=== PATIENT | female | born 1970 | race Caucasian/White ===

== ENCOUNTER 2017-01-13 22:13 | Observation (INO) | payer BC ==
[~2017-01-13] VITALS: Ht 175.3 cm; Wt 127.2 kg
--- NOTE | ~2017-01-13 | OP ---
Record Of Operation [facility] [address] [place]. [address] NAME: ADA ZIMMERMAN : 74 STATUS : DIS Laly PAT#: [id number] AGE: 46 ADM/REG DATE : 01/13/17 MR#: [id number] REPORT SERV DATE: 01/17/17 DICTATED BY: RALPH WEINSTEIN DATE: 01/17/17 REPORT STATUS : Draft TRANSCRIBED BY: MODL DATE: 01/17/17 DATE OF PROCEDURE: 01/14/2017 PREOPERATIVE DIAGNOSIS: Acute cholecystitis with cholelithiasis. POSTOPERATIVE DIAGNOSIS: Acute cholecystitis with cholelithiasis. PROCEDURE: Laparoscopic cholecystectomy (two-site). CORRIDOR REDEVELOPMENT MANAGER: Salvador. DESCRIPTION OF OPERATIVE PROCEDURE: The patient was brought to the operating suite, placed in supine position, underwent satisfactory general endotracheal anesthesia without incident. The skin of the abdomen was scrubbed, prepped, and draped in usual sterile fashion. 0.5% Marcaine with epinephrine was utilized as supplemental local anesthesia at all intended trocar sites. Initially, an infraumbilical incision was performed dissecting through the skin and subcutaneous tissue to the umbilical fascia. This was grasped with a Yobany clamp and elevated and a disposable Veress insufflation needle was inserted through the umbilical fascia into the peritoneal cavity. The intraperitoneal tip location was ascertained using the saline hanging drop method following which CO2 was insufflated for pressures of 15 mmHg throughout the case. After adequate insufflation pressures were achieved, the Veress needle was removed, and a disposable bladed/shielded 11 mm trocar was placed into the peritoneal cavity following which a rigid forward-viewing 10 mm laparoscope was inserted. Visualization of the intraabdominal parietes revealed no evidence of injury from initial insufflation or puncture. A cursory examination of the pelvis was normal. Attention was turned to the upper abdomen where an additional 5 mm trocar was placed to the right of falciform ligament. An additional 5 mm grasping instrument inserted through the umbilical fascia next to the umbilical trocar. The gallbladder was visualized, as expected it was thickened and acutely inflamed and edematous consistent with preoperative imaging and the patient's history. The fundus and body the gallbladder were grasped sequentially, and then I was able to proceed with dissection in the triangle of Calot area. The edematous and thickened peritoneum was dissected free with blunt and cautery dissection, and then the cystic duct, cystic duct and common duct junction, and cystic artery were visualized. There was one branch of the cystic artery that was anterior. The critical view was obtained The aforementioned structures were controlled with multiple applications of the Weck 5 mm polymer clip system and divided, and then using spatula cautery dissection, the peritoneal attachments of the gallbladder and liver were divided supplemented with irrigation and aspiration. Record Of Operation [facility] [address] [place]. [address] NAME: ADA ZIMMERMAN : 74 STATUS : DIS Laly PAT#: [id number] AGE: 46 ADM/REG DATE : 01/13/17 MR#: [id number] REPORT SERV DATE: 01/17/17 DICTATED BY: RALPH WEINSTEIN DATE: 01/17/17 REPORT STATUS : Draft TRANSCRIBED BY: SAMARA DATE: 01/17/17 Eventually, the gallbladder was removed from the subhepatic space and hemostasis was assured. The camera switched to the 5 mm port and the gallbladder was placed inside an Endo retrieval pouch, which had been inserted through the umbilical port. Trocars were removed. The Endo retrieval pouch was brought up through the umbilicus and it was opened, the gallbladder was morcellated, removing the gallbladder wall with multiple stones, and then eventually the pouch was removed from the peritoneal cavity. CO2 was allowed to egress from peritoneal cavity. No muscular bleeding was noted. The umbilicus was closed with [id number] suture of 0 Vicryl, subcutaneous tissue closure with interrupted 4-0 Vicryl, running subcuticular stitch of 4-0 Vicryl for the skin. Dermabond skin adhesive placed. The patient tolerated the procedure well and was returned to PACU in stable condition. At the termination of the procedure, sponge, needle, lap, and instrument counts were correct x3. ESTIMATED BLOOD LOSS: Less than 15-20 mL. WR/MODL Ralph Weinstein M.D. / [id number] CC: Kindra Aguilera TIFFANY
--- NOTE | ~2017-01-13 | HP ---
History And Physical [address] [address] NAME: ADA ZIMMERMAN : 74 STATUS : DIS Laly PAT#: [id number] AGE: 46 ADM/REG DATE : 01/13/17 MR#: [id number] REPORT SERV DATE: 01/17/17 DICTATED BY: RALPH SUNG DATE: 01/17/17 REPORT STATUS : Draft TRANSCRIBED BY: MODL DATE: 01/17/17 DATE OF ADMISSION: 01/13/2017 HISTORY: 46-year-old, white female, who presented to the ED this evening in the early hours of the morning with complaints of less than 12-hour onset of the upper abdominal pain associated with nausea and bloating and distention. The discomfort occurred after a meal. In the ED, imaging was consistent with acute cholecystitis with cholelithiasis on imaging. PAST MEDICAL HISTORY: Adult-onset diabetes, GERD, irritable bowel disease, morbid obesity, hypertension, and hemorrhoids. PAST SURGICAL HISTORY: Negative. 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 She is , nonsmoker, and nondrinker. PHYSICAL EXAMINATION: GENERAL: She is alert and oriented female, in [id number] distress from discomfort. Mucous membranes are moist. No scleral icterus. HEENT: Examination within normal limits. There is no thyromegaly. CARDIOVASCULAR: Reveals a regular rate and rhythm without murmur or gallop. CHEST: Chest sounds are clear bilaterally without rale, rhonchi, or rub. The breasts are not examined. ABDOMEN: Shows central endogenous obesity without distention or tympany. There is no abdominal wall hernia or scar. There is no hepatosplenomegaly or masses. The patient does have tenderness with guarding and a positive Miranda sign to palpation in the right upper quadrant. PELVIC: Not performed. EXTREMITIES: Normal. LABORATORY DATA: WBCs 7.1 thousand, H and H 12.3 and 36.1, platelets 215. Potassium is 3.2, glucose 219, BUN 9, creatinine 0.78. Alkaline phosphatase, ALT and AST, lipase within normal limits. Serum HCG negative. CT abdomen and pelvis without contrast shows evidence of early acute cholecystitis with cholelithiasis. She has a 4-cm maximal cyst at the right adnexa without inflammation. The appendix is normal in the mid upper pelvis. IMPRESSION: Acute cholecystitis with cholelithiasis. PLAN: I talked with the patient and her family about the risks and benefits, anesthesia and surgery and described the need for urgent laparoscopic cholecystectomy with possible cholangiogram, possible open cholecystectomy. She understands the nature of her illness and the surgical management is appropriate and would like to proceed to surgery. WR/MODL History And Physical [address] [place]. [address] NAME: ADA ZIMMERMAN : 74 STATUS : DIS Laly PAT#: [id number] AGE: 46 ADM/REG DATE : 01/13/17 MR#: [id number] REPORT SERV DATE: 01/17/17 DICTATED BY: RALPH SUNG DATE: 01/17/17 REPORT STATUS : Draft TRANSCRIBED BY: SAMARA DATE: 01/17/17 Ralph Sung M.D. / [id number] CC: Kindra Aguilera TIFFANY
[~2017-01-13 22:13] MED LIST: ALLEGRA180 PO; FORTAMET1000 MG PO; GLUCOPHAGE1000 MG PO; HARD NAILS PO; HYZAAR 100/25 T1 TAB PO; ZANTAC 150 PO; ZOL100 PO
[2017-01-13 22:59] LABS: BASOPHILS 0.1 %; BASOPHILS ABSOLUTE 0.01 10/3/uL (0.0-0.16); EOSINOPHILS ABSOLUTE 0.14 10/3/uL (0.0-0.53); ER CBC TAT 0 Hrs 09 Mins; HEMATOCRIT 36.1 % (36.0-48.0); HEMOGLOBIN 12.3 g/dL (12.0-16.0); IMMATURE GRANULOCYTES 0.3 %; IMMATURE GRANULOCYTES ABSOLUTE 0.02 10/3/uL (0.0-0.11); LYMPHOCYTES 15.6 %; LYMPHOCYTES ABSOLUTE 1.11 10/3/uL (0.67-4.30); MANUAL DIFF NO %; MEAN CORPUS HGB CONC 34.1 g/dL (32.0-36.0); MEAN CORPUSCULAR HEMOGLOB 26.6 pg (26.0-34.0); MEAN CORPUSCULAR VOLUME 78.1 fL (80-100); MEAN PLATELET VOLUME 10.9 fL (9.2-13.0); MONOCYTES 6.7 %; MONOCYTES ABSOLUTE 0.48 10/3/uL (0.21-1.20); NEUTROPHILS 75.3 %; NEUTROPHILS ABSOLUTE 5.37 10/3/uL (2.02-8.40); PLATELET COUNT 215 10/3/uL (150-400); RBC DISTRIBUTION WIDTH 13.9 % (12.0-16.0); RED CELL COUNT 4.62 10/6/uL (4.0-5.6); WHITE BLOOD CELLS 7.1 10/3/uL (4.5-10.5)
[2017-01-13 23:06] LABS: ASCORBIC ACID (UR NOT ORDER) NEG (NEG); BILIRUBIN, URINE NEGATIVE (NEG); ER URINALYSIS TAT 0 Hrs 16 Mins; KETONE, URINE NEGATIVE (NEG); LEUKOCYTE ESTERASE(NOT OR NEG (NEG); NITRITE (URINE) NEG (NEG); WBC (NOT ORDERED) (RFLEX) 3 (0-5)
[2017-01-13 23:16] LABS: ALBUMIN 3.8 G/DL (3.5-5.0); CALCIUM, SERUM 8.9 MG/DL (8.5-10.4); CHLORIDE, SERUM 99 MMOL/L (96-112); CO2 (CARBON DIOXIDE) 29 MMOL/L (24-34); CREATININE 0.78 MG/DL (0.55-1.02); DIRECT BILIRUBIN 0.1 MG/DL (0.0-0.4); GFR AFRICAN AMERICAN 107 ML/MIN (>=60); GFR NON AFRICAN AMERICAN 92 ML/MIN (>=60); GLOBULIN 3.9 G/DL (2.5-4.1); INDIRECT BILIRUBIN(NOT ORDER) 0.5 MG/DL (0.1-0.9); POTASSIUM, SERUM 3.2 MMOL/L (3.5-5.3); SGOT(AST) 14 U/L (5-40); SGPT(ALT) 26 U/L (5-65); SODIUM, SERUM 137 MMOL/L (135-148); TOTAL BILIRUBIN 0.6 MG/DL (0-1.2); TOTAL PROTEIN 7.7 G/DL (6.0-8.5)
[2017-01-13 23:17] LABS: ALKALINE PHOSPHATASE 97 U/L (45-117); BUN (BLOOD UREA NITROGEN) 9 MG/DL (6-23); GLUCOSE, SERUM 219 MG/DL (60-99)
[2017-01-14] MEDS ORDERED: HYZAAR 100/25 T1 TAB PO (01:05)
[2017-01-14] MEDS ORDERED: ZOL100 PO (01:05)
[2017-01-14] MEDS ORDERED: ZANTAC 150 PO (01:06)
[2017-01-14] MEDS ORDERED: GLUCOPHXR PO (01:06)
[2017-01-14] MEDS ORDERED: PROAIR HFA INH (01:07)
[2017-01-14] MEDS ORDERED: CRESTOR5 MG PO (01:07)
[2017-01-14] MEDS ORDERED: JANUVIA50 PO (01:07)
[2017-01-14] MEDS ORDERED: DIABETA5 PO (01:07)
[2017-01-14 14:00] LABS: POTASSIUM, SERUM 3.7 MMOL/L (3.5-5.3)
[2017-01-14] MEDS ORDERED: NORCO1 TA1 PO (15:40)
== END 2017-01-14 16:00 | disposition home or self-care (01) ==
LOC: ER 22:13 → 4EA 23:59 → ER 01-14 01:15 → 4EA 01-14 01:15
PROVIDERS: Emergency Medicine; Specialist
PROC: 0FT44ZZ Resection of Gallbladder, Percutaneous Endoscopic Approach (ICD-10-PCS; principal; 2017-01-14 11:45)
DX: K80.10 Calculus of gallbladder with chronic cholecystitis without obstruction (principal); K82.8 Other specified diseases of gallbladder; K21.9 Gastro-esophageal reflux disease without esophagitis; I10 Essential (primary) hypertension; J45.909 Unspecified asthma, uncomplicated; K58.9 Irritable bowel syndrome, unspecified; E66.01 Morbid (severe) obesity due to excess calories; Z88.1 Allergy status to other antibiotic agents; Z88.8 Allergy status to other drugs, medicaments and biological substances; Z79.84 Long term (current) use of oral hypoglycemic drugs; Z79.899 Other long term (current) drug therapy
CPT/HCPCS: 74176; 80053; 81001; 82248; 82962; 83690; 83735; 84132; 84703; 85025; 88304; 93005; 96365; 96374; 96375; 99285; A9270-GY; C9113; G0378; J1170; J2250; J2370; J2405; J2543; J2710; J3010; J3475